=== PATIENT | male | born 1940 | race Caucasian/White ===

== ENCOUNTER 2021-11-18 10:39 | Emergency (ER) | payer MEDICARE ==
[~2021-11-18 10:39] MED LIST: BACTRIM DS TAB1 EACH PO; K-DUR20 MEQ PO; KEFLEX250 MG PO; LASIX20 MG PO
[2021-11-18] MEDS ORDERED: KEFLEX250 MG PO ×2 (12:59→13:26)
[2021-11-18] MEDS ORDERED: TRAMADOL HCL50 MG PO ×2 (12:59→13:26)
[2021-11-18] MEDS ORDERED: NORCO 5-325 TA1 EACH PO (13:38)
== END 2021-11-18 13:30 | disposition home or self-care (01) ==
LOC: FER 10:39
DX: S51.811A Laceration without foreign body of right forearm, initial encounter (principal); Z23 Encounter for immunization; W01.0XXA Fall on same level from slipping, tripping and stumbling without subsequent striking against object, initial encounter
CPT/HCPCS: 73090; 90471; 90715; Q0162